=== PATIENT | male | born 1960 ===

== ENCOUNTER → 2017-05-25 | Emergency (ER) | payer OTHER ==
[~2017-05-25] VITALS: Ht 170.2 cm; Wt 78.9 kg
== END | disposition home or self-care (01) ==
LOC: ER 13:06
DX: S61.217A Laceration without foreign body of left little finger without damage to nail, initial encounter (principal); W27.0XXA Contact with workbench tool, initial encounter; Y93.89 Activity, other specified; Y92.89 Other specified places as the place of occurrence of the external cause; Y99.8 Other external cause status